=== PATIENT | male | born 1985 | race Asian ===

== ENCOUNTER 2017-07-07 22:55 | Emergency (ER) | payer OTHER ==
[2017-07-07 23:13] VITALS: BP 150/96; PULSE 62; TEMP 98; BMI 23.9
--- NOTE | 2017-07-07 23:40 | PDOC ---
History of Present Illness - General Chief Complaint: Allergic Reaction Stated Complaint: RASH Time Seen by Provider: 07/07/17 23:40 History Source: Patient - History of Present Illness Initial Comments: 07/08/17 00:38 31-year-old male complaining of hives and lip swelling on and off for 2 months with unknown allergen. Patient was previously seen and [facility] and prescribed Zyrtec seen and triamcinolone. Denies nausea, vomiting, diarrhea , and abdominal pain, shortness of breath, difficulty breathing. Past History - Past Medical History Allergies/Adverse Reactions: Allergies Allergy/AdvReac Type Severity Reaction Status Date / Time No Known Allergies Allergy Verified 07/07/17 23:10 Home Medications: Ambulatory Orders Epinephrine [Epipen 2-Leodan] 0.3 mg IJ ASDIR #1 kit 07/08/17 Famotidine [Pepcid -] 40 mg PO DAILY #30 tablet 07/08/17 Prednisone [Prednisone 50 MG TABLETS] 50 mg PO DAILY #5 tablet 07/08/17 Other medical history: Pt denies - Psycho/Social/Smoking Cessation Hx Suicidal Ideation: No Smoking History: Never smoked Have you smoked in the past 12 months: No Information on smoking cessation initiated: No Hx Alcohol Use: No Drug/Substance Use Hx: No Substance Use Type: None Review of Systems - Review of Systems Able to Perform ROS?: Yes Is the patient limited Spanish proficient: No Constitutional: No: Symptoms Reported, See HPI, Chills, Diaphoresis, Fever, Loss of Appetite, Malaise, Night Sweats, Weakness, Weight Stable, Unintentional Wgt. Loss, Unexplained wgt Loss, Other HEENTM: Yes: Other (lip swelling) Respiratory: No: Symptoms reported, See HPI, Cough, Orthopnea, Shortness of Breath, SOB with Exertion, SOB at Rest, Stridor, Wheezing, Productive cough, Hemoptysis, Other Integumentary: Yes: Other (generalized hives) *Physical Exam - Vital Signs Last Vital Signs Temp Pulse Resp BP Pulse Ox 98.0 F 62 20 150/96 100 07/07/17 23:11 07/07/17 23:11 07/07/17 23:11 07/07/17 23:11 07/07/17 23:11 - Physical Exam General Appearance: Yes: Appropriately Dressed HEENT: positive: Pharyngeal Erythema, Other (uvula midline. no swelling+ lip swelling). negative: Muffled/Hoarse voice Respiratory/Chest: positive: Lungs Clear, Normal Breath Sounds Gastrointestinal/Abdominal: positive: Normal Bowel Sounds (month or swelling), Soft Extremity: positive: Normal Capillary Refill, Normal Inspection, Normal Range of Motion Integumentary: positive: Normal Color, Dry, Warm, Hives (generalized) Neurologic: positive: Fully Oriented, Alert Medical Decision Making - Medical Decision Making 07/08/17 00:49 Allergic reactions P: benadryl zantac prednisone outpatient allergy follow up *DC/Admit/Observation/Transfer Diagnosis at time of Disposition: Allergic reaction Qualifiers: Encounter type: initial encounter Qualified Code(s): T78.40XA - Allergy, unspecified, initial encounter - Discharge Dispostion Disposition: HOME - Prescriptions Prescriptions: Epinephrine [Epipen 2-Leodan] 0.3 mg IJ ASDIR #1 kit Famotidine [Pepcid -] 40 mg PO DAILY #30 tablet Prednisone [Prednisone 50 MG TABLETS] 50 mg PO DAILY #5 tablet - Referrals Referrals: Javed Gonzalez MD [Staff Physician] - - Patient Instructions Printed Discharge Instructions: DI for Adverse Drug Reaction -- Allergic Additional Instructions: take benadryl every 8 hours as needed for itching. use epipen as directed for severe allergic reaction follow up with Dr. Gonzalez as soon as possible. return to the ER if symptoms worsen.
[2017-07-07] MEDS ORDERED: predniSONE 20 MG TABLET (UD) ONE (23:45)
[2017-07-07] MEDS ORDERED: diphenhydrAMINE HCL 25 MG CAPSULE (FP) PO ONE ×2 (23:45→23:46)
[2017-07-07] MEDS ORDERED: RANITIDINE HCL 150 MG TABLET (FP) PO ONE (23:45)
[2017-07-07] MEDS ORDERED: RANITIDINE HCL 150 MG TABLET (FP) ONE (23:46)
[2017-07-08] MEDS ORDERED: predniSONE 20 MG TABLET (UD) PO SCH (10:00)
== END 2017-07-08 01:01 | disposition home or self-care (01) ==
LOC: JER 22:55
DX: T78.40XA Allergy, unspecified, initial encounter (principal); L50.0 Allergic urticaria
CPT/HCPCS: 99282-25